=== PATIENT | female | born 1955 | race Caucasian/White ===

== ENCOUNTER → 2016-06-04 | Outpatient (CLI) | payer OTHER | END | disposition home or self-care (01) | LOC: RADECHMAIN 12:30 | PROVIDERS: ATTEND Nurse Practitioner Family | DX: R00.1 Bradycardia, unspecified (principal); I47.1 Supraventricular tachycardia | CPT/HCPCS: 93225; 93226 ==

== ENCOUNTER → 2016-07-11 | Outpatient (CLI) | payer OTHER ==
[~2016-07-11] MED LIST: ATROPINE SULFATE 0.1 MG/ML 10ML SYRINGE ONE; DOBUTamine DRIP for NUC MED 500 MG in DEXTROSE/WATER 1 250ML.BAG IV ONE
--- NOTE | 2016-07-11 12:36 | ECHOS ---
DATE OF SERVICE: 07/11/2016 AGE: 61Y SEX: F HT: 62" WT: 137 lbs. Protocol Prashanth: Others: Dobutamine Stress Echo Stage: Dur. of Exercise: *Heart Rate Blood Pressure *Rest: 71 Rest: 112/57 * *Max. Achieved: 154 Maximum BP: 196/69 85% PMHR: 133 100% PMHR: 157 *METS: INDICATIONS: Chest pain. MEDICATIONS: The patient was given dobutamine infusion according to the standard protocol. Patient also received atropine. Peak heart rate of 154 was achieved. Maximum blood pressure of 196/69 mmHg was noted. Resting EKG shows normal sinus rhythm with normal DE interval and QRS duration and normal ST-T waves. No ST segment depression suggestive of ischemia is noted. Occasional PVCs were noted. The baseline echocardiographic images reveals normal left ventricular chamber size with normal left ventricular systolic function. At the peak dose of dobutamine infusion, normal increase in the wall thickness and contractility is noted. FINAL IMPRESSION: This dobutamine stress echocardiographic study is negative for stress-induced ischemia. EKG portion of the stress test is not suggestive of ischemia. Occasional PVCs were noted.
== END | disposition home or self-care (01) ==
LOC: RADNMMAIN 09:21
PROVIDERS: ATTEND Family Medicine
DX: R07.89 Other chest pain (principal)
CPT/HCPCS: 93017; 93350; J1250

== ENCOUNTER 2017-09-22 07:25 | Day surgery (SDC) | payer BC ==
[2017-09-18 09:54] VITALS: BMI 21.9
[~2017-09-22 07:25] MED LIST changes: -ATROPINE SULFATE 0.1 MG/ML 10ML SYRINGE ONE; -DOBUTamine DRIP for NUC MED 500 MG in DEXTROSE/WATER 1 250ML.BAG IV ONE; +LACTATED RINGERS 1,000 ML IV SCH; +LIDOCAINE 1% 20 ML VIAL (10MG/ML) FOR IV START INTRADERMA PRN
[2017-09-22 08:18] VITALS: TEMP 97.3
[2017-09-22] MEDS ORDERED: LIDOCAINE 1% 20 ML VIAL (10MG/ML) FOR IV START INTRADERMA ONE (08:18)
[2017-09-22 08:22] LABS: Glucose,Whole Blood 119 mg/dL (75-99)
[2017-09-22] MEDS ORDERED: LIDOCAINE 1% INJ 10MG/ML (20 ML MDV) ONE (09:25)
[2017-09-22] MEDS ORDERED: fentaNYL (PF) 50 MCG/ML 2 ML AMP ONE (09:25)
[2017-09-22] MEDS ORDERED: PROPOFOL 10 MG/ML 20 ML VIAL IV ONE (09:25)
[2017-09-22 09:49] VITALS: BP 119/77; PULSE 73; RESP 16
--- NOTE | 2017-09-22 14:37 | P.PCN ---
Date of Procedure: 09/22/17 Procedure(s) Performed: Procedures: 1. Esophagogastroduodenoscopy and biopsy. 2. Total colonoscopy. Preoperative diagnosis: Blood in the stools. Postoperative diagnosis: 1. Small sliding hiatal hernia with no obvious esophagitis or complicated reflux disease. 2. Mild gastritis and duodenitis. 3. Multiple biopsies obtained from the duodenum, antrum and esophagus. 4. Normal colon and terminal ileum. Preparation: HalfLytely prep. Sedation: Was provided by anesthesia. Brief clinical history: The patient is a 62-year-old female who is scheduled for this evaluation because of finding of occult blood blood in her stools. She has no abdominal complaints, overt bleeding or anemia. Procedure: With the patient on her left lateral decubitus position and after informed consent and adequate sedation, the Olympus-GIF 160 video upper endoscope was used and was advanced under direct vision through the cricopharyngeus down the esophagus. GE junction was around 35 cm from the incisors and there was a small sliding hiatal hernia but no obvious esophagitis or complicated reflux disease. The endoscope was then passed into the stomach which was insufflated with air and inspected in detail including the retroflex view in the cardia. There was some mottling and erythema consistent with mild gastritis but no ulcers, erosions or bleeding. Pyloric channel did not show any ulcers. Duodenal bulb, post bulbar area and descending duodenum showed some erythema with no ulcers, erosions or bleeding. I obtained multiple biopsies from the duodenum, antrum and esophagus then the endoscope was withdrawn and I proceeded with the colonoscopy. Perianal area did not show any fissures or fistulas. There were no masses felt on digital rectal examination. The Olympus CFQ 160L video colonoscope was then inserted in the rectum in the usual fashion and advanced to the cecum. I intubated the ileocecal valve and examined the terminal ileum. Colon and terminal ileum appeared healthy with no edema, erythema, friability, ulceration , exudation or spontaneous bleeding. No polyps or tumors were seen or any obvious diverticular disease or other pathology. I retroflexed the endoscope in the rectum before the endoscope was withdrawn. The patient tolerated the procedure well. Plan: The patient was reassured. Will await biopsy results. Further plans based on her course. She'll follow-up with you as planned.
== END 2017-09-22 10:27 | disposition home or self-care (01) ==
LOC: ORWHC2ENDO 07:25
DX: K29.50 Unspecified chronic gastritis without bleeding (principal); K21.0 Gastro-esophageal reflux disease with esophagitis; R19.5 Other fecal abnormalities; K29.80 Duodenitis without bleeding; K44.9 Diaphragmatic hernia without obstruction or gangrene; J44.9 Chronic obstructive pulmonary disease, unspecified; E11.9 Type 2 diabetes mellitus without complications; Z79.84 Long term (current) use of oral hypoglycemic drugs; I10 Essential (primary) hypertension; E78.5 Hyperlipidemia, unspecified; F17.210 Nicotine dependence, cigarettes, uncomplicated; Z85.828 Personal history of other malignant neoplasm of skin; Z79.82 Long term (current) use of aspirin; Z79.891 Long term (current) use of opiate analgesic; Z79.51 Long term (current) use of inhaled steroids; Z79.899 Other long term (current) drug therapy
CPT/HCPCS: 88305; 45378; 43239; J2001; J3010; J2704

== ENCOUNTER → 2020-01-11 | Outpatient (CLI) | payer MEDICARE ==
--- NOTE | 2020-01-11 15:57 | BD ---
EXAMINATION TYPE: Axial Bone Density DATE OF EXAM: 01/11/2020 COMPARISON: 01.24.2016 CLINICAL HISTORY: 64 YR OLD FEMALE.....ICD-10 CODE: Z78.0 ASYMPTOMATIC POST STEVEN Height: 60 Weight: 111 FRAX RISK QUESTIONS: Family History (Parent hip fracture): YES Glucocorticoids (More than 3mos): YES (Ex: prednisone, prednisolone, methylprednisolone, dexamethasone, and hydrocortisone). Current Tobacco Use: YES RISK FACTORS HISTORY OF: NO FXs OVER AGE OF 40, NO WRIST FXs Family History of Osteoporosis: YES, GR MO AND MOTHER WITH BROKEN HIP Active: YES Postmenopausal woman: YES, 50s Hyperparathyroidism: NO Adrenal Insufficiency: NO MEDICATIONS: Prednisone or other steroids: YES, FOR COPD, AND EMPHESYMA How Long: MANY YRS Osteoporosis Medications: FOSAMAX, LONG AGO....NOT NOW Additional Medications: BP MEDS, DIABETIC MEDS, REFLUX MEDS, LIPITOR, MAGNESIUM Additional History: HYPERTENSION, DIABETIC, REFLUX, CHOLESTEROL, COPD, EMPHYSEMA, OSTEOARTHRITIS EXAM MEASUREMENTS: Bone mineral densitometry was performed using the Flashtalking System. Bone mineral density as measured about the Lumbar spine is: ----- L1-L4(G/cm2): 1.004 T Score Values are as follows: ----- L1: -2.6 ----- L2: -1.9 ----- L3: -0.9 ----- L4: -0.8 ----- L1-L4: -1.5 Bone mineral density has: Decreased -8.6% since study of: 01.24.2016 Bone mineral density about the R hip (g/cm2): 0.816 Bone mineral density about the L hip (g/cm2): 0.764 T Score values are as follows: -----R Neck: -1.0 -----L Neck: -2.0 -----R Total: -1.5 -----L Total: -1.9 Bone mineral density has: Decreased -12.2% since study of: 01.24.2016 FRAX%s: THERE IS A 27.6% CHANCE FOR A MAJOR OSTEOPOROTIC FX AND A 7.0% FOR HIP.....PROBABILITY FO R FX IN 10 YRS TIME IMPRESSION: Osteopenia (T Score between -2.5 and -1). There is slightly increased risk of fracture and the patient may be considered for treatment. Re-Screen 2-5 years. NOTE: T-SCORE=SD OF THE YOUNG ADULT MEAN.
--- NOTE | 2020-01-12 09:07 | MM ---
Reason for exam: screening (asymptomatic). Last mammogram was performed 4 years ago. History: Patient is postmenopausal. Physical Findings: A clinical breast exam by your physician is recommended on an annual basis and results should be correlated with mammographic findings. MG Screening Mammo w CAD Bilateral CC and MLO view(s) were taken. Prior study comparison: January 24, 2016, bilateral MG screening mammo w CAD. December 19, 2013, bilateral MG screening mammo w CAD. The breast tissue is heterogeneously dense. This may lower the sensitivity of mammography. Finding: There is a 15 mm circumscribed oval mass in the inner quadrant, posterior position. New finding since January 24, 2016. ASSESSMENT: Incomplete: need additional imaging evaluation, BI-RAD 0 RECOMMENDATION: Special view mammogram and ultrasound of the left breast. [facility] will attempt to contact patient to return for supplemental views and ultrasound.
== END | disposition home or self-care (01) ==
LOC: RADMAMWWP 07:31
PROVIDERS: ATTEND Family Medicine
DX: Z12.31 Encounter for screening mammogram for malignant neoplasm of breast (principal); M85.80 Other specified disorders of bone density and structure, unspecified site; Z78.0 Asymptomatic menopausal state
CPT/HCPCS: 77067; 77080

== ENCOUNTER → 2020-01-20 | Outpatient (CLI) | payer MEDICARE ==
--- NOTE | 2020-01-20 09:36 | MM ---
Reason for exam: additional evaluation requested from abnormal screening. Last mammogram was performed less than 1 month ago. History: Patient is postmenopausal. Physical Findings: Nurse Summary: 1.5 x 1.5cm nodule in the left breast at 9 o'clock (nurse ts). MG 3D Work Up W/Cad LT CC and MLO view(s) were taken of the left breast. Prior study comparison: January 11, 2020, bilateral MG screening mammo w CAD. January 24, 2016, bilateral MG screening mammo w CAD. The breast tissue is heterogeneously dense. This may lower the sensitivity of mammography. 1.5cm circumscribed mass 9 o'clock corresponds to the skin marker and cutaneous lesion. These results were verbally communicated with the patient and result sheet given to the patient on 01/20/20. ASSESSMENT: Incomplete: need additional imaging evaluation, BI-RAD 0 RECOMMENDATION: Ultrasound of the left breast.
--- NOTE | 2020-01-20 09:39 | USB ---
Reason for exam: additional evaluation requested from abnormal screening. History: Patient is postmenopausal. US Breast Limited LT Left limited breast ultrasound including focal area of concern, retroareolar and axilla demonstrates a 1.4 x 0.8 x 1.6cm oval lesion at 8 o'clock, debris filled cyst just below the skin, probable sebaceous cyst, dermatology referral can be considered. Scanned 6-9 o'clock. These results were verbally communicated with the patient and result sheet given to the patient on 01/20/20. ASSESSMENT: Benign, BI-RAD 2 RECOMMENDATION: Return to routine screening mammogram schedule for both breasts. Manage patient on a clinical basis. Consider dermatology referral for suspected sebaceous cyst.
== END | disposition home or self-care (01) ==
LOC: RADMAMWWP 07:53
PROVIDERS: ATTEND Family Medicine
DX: R92.8 Other abnormal and inconclusive findings on diagnostic imaging of breast (principal)
CPT/HCPCS: 77065; 76642; G0279; 77061

== ENCOUNTER → 2021-04-03 | Outpatient (CLI) | payer MEDICARE ==
--- NOTE | 2021-04-03 10:30 | CTL ---
EXAMINATION TYPE: CT Low Dose Lung DATE OF EXAM ORDERED: 04/03/2021 HISTORY: Long-term tobacco use. Lung cancer screening. CT DLP: 90.[address] CTDI: 2.9 mGy Automated exposure control for dose reduction was used. SCREENING VISIT: Baseline. COMPARISON: None TECHNIQUE: Low dose computed tomography scan was performed through the chest at 1 mm thick sections a nd reconstructed images in multiple planes at 1 mm and [address] DIAGNOSTIC QUALITY: Satisfactory FINDINGS: LUNG NODULES: Present, detailed below: There is 2 to 3 mm calcified nodule or granuloma lateral aspect right lower lobe axial image 153. Add itional 3 mm calcified nodule or benign granuloma lateral aspect right lung base axial image 210. No suspicious greater than 6 mm noncalcified nodules. LUNGS: COPD: Severity: Mild Fibrosis: Severity: Mild Bibasilar Lymph nodes: No enlarged Other findings: Main pulmonary artery measures 3.3 cm in diameter axial image 21 larger than adjacent ascending aorta. CT findings consistent with underlying pulmonary artery hypertension. RIGHT PLEURAL SPACE: Effusion: None Calcification: None Thickening: None Pneumothorax: None LEFT PLEURAL SPACE: Effusion: None Calcification: None Thickening: None Pneumothorax: None HEART: Heart Size: Normal Coronary calcification: Moderate to severe in the LAD and RCA distribution Pericardial effusion: None OTHER FINDINGS: Upper abdomen: None Bony thorax: Mild to moderate chronic type Fracture with sclerosis at the peak of thoracic curvature T7 level. Osseous structures are demineralized. Slight underlying scoliotic curvature on the coronal images Supraclavicular region: None Other: Round 1.5 cm low dense lesion medial inferior left breast has Hounsfield units averaging 9 abu tting skin surface favoring sebaceous cyst or other benign dermatologic etiology. IMPRESSION: No suspicious noncalcified nodules. CT LUNG RAD AND CT CHEST RECOMMENDATION: Lung-Rad 2 Benign Appearance or Behavior: Continue annual sc reening with LDCT in 12 months. S Modifier (other clinically significant findings): S Moderate to severe coronary artery calcification in the LAD and RCA distribution. Correlate clinicall y for additional cardiac risk factors. Demineralization with chronic mild compression type fracture a t T7 level at the peak of the thoracic kyphosis.
--- NOTE | 2021-04-04 12:02 | MM ---
Reason for exam: screening (asymptomatic). Last mammogram was performed 1 year and 2 months ago. History: Patient is postmenopausal. Physical Findings: A clinical breast exam by your physician is recommended on an annual basis and results should be correlated with mammographic findings. MG Screening Mammo w CAD Bilateral CC and MLO view(s) were taken. Prior study comparison: January 20, 2020, left breast MG 3d work up w/cad LT. January 11, 2020, bilateral MG screening mammo w CAD. The breast tissue is heterogeneously dense. This may lower the sensitivity of mammography. No significant changes when compared with prior studies. ASSESSMENT: Benign, BI-RAD 2 RECOMMENDATION: Routine screening mammogram of both breasts in 1 year.
== END ==
LOC: RADMAMWWP 08:37
PROVIDERS: ATTEND Family Medicine
DX: Z12.2 Encounter for screening for malignant neoplasm of respiratory organs (principal); Z12.31 Encounter for screening mammogram for malignant neoplasm of breast; Z87.891 Personal history of nicotine dependence; J84.10 Pulmonary fibrosis, unspecified
CPT/HCPCS: 71271; 77067

== ENCOUNTER → 2021-09-30 | Outpatient (CLI) | payer MEDICARE ==
--- NOTE | 2021-09-30 08:16 | US ---
EXAMINATION TYPE: US abdomen complete DATE OF EXAM: 09/30/2021 COMPARISON: NONE CLINICAL HISTORY: R10.31 Rt lower quadrant pain R10.32. EXAM MEASUREMENTS: Liver Length: 15.8 cm Gallbladder Wall: 0.1 cm CBD: 0.4 cm Spleen: 11.0 cm Right Kidney: 10.3 x 4.0 x 3.9 cm Left Kidney: 10.6 x 5.5 x 4.8 cm Pancreas: Tail obscured by overlying bowel gas Liver: wnl Gallbladder: No stones seen Evidence for sonographic Posadas's sign: No CBD: wnl Spleen: wnl Right Kidney: No hydronephrosis or masses seen Left Kidney: No hydronephrosis or masses seen Upper IVC: wnl Abd Aorta: wnl The visualized liver is homogenous. The intrahepatic portion of the IVC and proximal abdominal aorta are within normal limits. There is no evidence of cholelithiasis. Common bile duct is unremarkable . The visualized portions of the pancreas are homogenous. The spleen is unremarkable. Kidneys are symmetric and free of hydronephrosis. No renal lesions are seen. IMPRESSION: Unremarkable study. No acute findings are evident.
--- NOTE | 2021-09-30 08:17 | US ---
EXAMINATION TYPE: US pelvic complete DATE OF EXAM: 09/30/2021 COMPARISON: NONE CLINICAL HISTORY: R10.31 Rt lower quadrant pain R10.32. Right pelvic pain. TECHNIQUE: Transabdominal (TA). Transabdominal sonographic images of the pelvis were acquired. Date of LMP: post menopausal. Total hysterectomy 2000 EXAM MEASUREMENTS: Uterus: Surgically absent cm Endometrial Stripe: Surgically absent cm Right Ovary: Surgically absent cm Left Ovary: Surgically absent cm 1. Uterus: Removed 2. Endometrium: Removed 3. Right Ovary: Removed 4. Left Ovary: Removed. 5. Bilateral Adnexa: wnl 6. Posterior cul-de-sac: wnl Uterus surgically absent. Bladder not greatly distended without intraluminal mass. No free fluid in t he pelvis. No suspicious adnexal masses noted. Ovaries noted surgically absent. IMPRESSION: No acute findings are evident.
== END | disposition home or self-care (01) ==
LOC: RADUSWWP 06:54
PROVIDERS: ATTEND Family Medicine
DX: R10.31 Right lower quadrant pain (principal); R10.32 Left lower quadrant pain; R10.2 Pelvic and perineal pain
CPT/HCPCS: 76700; 76856